=== PATIENT | female | born 1990 | race Caucasian/White ===

== ENCOUNTER → 2020-05-28 | Outpatient (CLI) | payer BC, OTHER ==
[~2020-05-28] MED LIST: ASA81BEC PO; BLACK ELDERBER1 EACH PO; MULTIVITAMINS1 EAC7 PO; PERCOCET 7.5-31 EAC1 PO; PROAIR HFA8.5 GM INH; SUMATRIPTAN SU100 MG PO; SYMBICORT160 MCG/4. INH; VITAMIN D325 MC3 PO
== END ==
LOC: LAB 10:12
PROVIDERS: ATTEND Student in an Organized Health Care Education/Training Program
DX: Z01.818 Encounter for other preprocedural examination (principal); Z11.59 Encounter for screening for other viral diseases

== ENCOUNTER 2020-05-31 06:06 | Day surgery (SDC) | payer BC, OTHER ==
[~2020-05-31] VITALS: Ht 170.2 cm; Wt 72.6 kg
[~2020-05-31 06:06] MED LIST changes: -ASA81BEC PO; -PERCOCET 7.5-31 EAC1 PO
[2020-05-31 07:32] VITALS: BP 122/68
[2020-05-31] MEDS ORDERED: ASA81BEC PO (08:19)
[2020-05-31] MEDS ORDERED: PERCOCET 7.5-31 EAC1 PO (08:19)
[2020-05-31 08:44] VITALS: BP 122/68
--- NOTE | 2020-06-03 08:12 | O ---
[facility] [place] [address] OPERATIVE REPORT Name: HEATH NESS Room #: DEP [facility].#: [id number] Admission: 05/31/20 Attend Phys: Shashi Hodge MD Discharge: 05/31/20 Date of : 88 Report #: [id number] THIS REPORT FOR: cc: Paramjit Vazquez MD, John H. MD Kneidel, Matthew T. MD ~ CC: Paramjit Hodge DATE OF SERVICE: 05/31/2020 PREOPERATIVE DIAGNOSES: 1. Right ankle instability. 2. Right ankle synovitis. POSTOPERATIVE DIAGNOSES: 1. Right ankle instability. 2. Right ankle synovitis. PROCEDURES: 1. Right ankle arthroscopic debridement with synovectomy. 2. Right ankle Brostrom-Murray lateral ligament reconstruction. SURGEON: Shashi Hodge MD STRUCTURAL DESIGNER: Dr. Iris Valdes. ANESTHESIA: General. ESTIMATED BLOOD LOSS: Minimal. DRAINS: No drains. TOURNIQUET TIME: 45 minutes. DESCRIPTION OF PROCEDURE: The patient brought to the operating room where she was placed under general anesthesia. Once under adequate general anesthesia, her right lower extremity was placed into an arthroscopic thigh support. The right lower extremity was then prepped and draped in sterile manner. The extremity was elevated, exsanguinated, tourniquet placed 300 mmHg. A Guhl ankle distractor was then placed. An anteromedial and anterolateral arthroscopic portal was made in the usual fashion. Examination of the joint noted significant synovitis in the infra-syndesmotic region and synovectomy was performed there with the arthroscopic shaver. Similarly anteriorly, there was significant synovitis and a synovectomy was performed there as well with the arthroscopic shaver. The wound was irrigated copiously and arthroscopic [facility] [address] [place] [address] OPERATIVE REPORT Name: HEATH NESS Room #: DEP [facility] Brun[facility].Dewey#: [id number] Admission: 05/31/20 Attend Phys: Shashi Hodge MD Discharge: 05/31/20 Date of : 88 Report #: [id number] equipment was removed. The extremity was removed from the arthroscopic thigh support. A curvilinear incision was made just distal to the fibula. Dissection was taken down to the inferior extensor retinaculum, which was identified and tagged for later use. The anterior talofibular ligament and calcaneofibular ligament were then subsequently incised through the mid portions and repaired in shortened position with 0 Ethibond suture. The inferior extensor retinaculum was then advanced to the periosteum of the fibula as well with 0 Ethibond suture. Excellent repair was achieved in this manner. Once complete, the wounds were irrigated copiously and closed with 2-0 Vicryl in subcutaneous tissues and michael for the skin. The wound was dressed with Xeroform, 4 x 4s, and sterile soft compressive dressing were placed along with a short leg cast. Tourniquet was let down at 45 minutes. Toes were pink and warm with good capillary refill. There were no complications from the procedure. The patient tolerated the procedure well and went to recovery room without incident. <ELECTRONICALLY SIGNED> By: Shashi Hodge MD 06/03/20 0812 [id number] [id number] Shashi Hodge MD /nt
== END 2020-05-31 09:40 | disposition home or self-care (01) ==
LOC: TBA 06:06 → OR 06:06 → TBA 06:07 → OR 09:40
PROVIDERS: ATTEND Orthopaedic Surgery Foot and Ankle Surgery
DX: M25.371 Other instability, right ankle (principal); M65.871 Other synovitis and tenosynovitis, right ankle and foot; G43.909 Migraine, unspecified, not intractable, without status migrainosus; J45.909 Unspecified asthma, uncomplicated; Z98.890 Other specified postprocedural states; Z79.899 Other long term (current) drug therapy; Z79.82 Long term (current) use of aspirin
CPT/HCPCS: 50010; 50101; 50386; 51412; 51647; 56524; 56526; 56528; 57091; 57103; 57180; 62110; 62900; 70005

== ENCOUNTER → 2021-01-21 | Outpatient (CLI) | payer BC, OTHER ==
[~2021-01-21] MED LIST changes: +ASA81BEC PO; +PERCOCET 7.5-31 EAC1 PO
== END ==
LOC: SJCVCIMAG 09:40
PROVIDERS: ATTEND Internal Medicine Cardiovascular Disease
DX: R06.00 Dyspnea, unspecified (principal); R00.2 Palpitations